=== PATIENT | female | born 1930 | race Two or more races ===

== ENCOUNTER 2018-01-17 00:40 | Inpatient (IN) | payer MEDICARE, BC ==
[2018-01-17] VITALS (36 sets, daily range): BP systolic 118–169; BP diastolic 34–103
[~2018-01-17] VITALS: Ht 152.4 cm; Wt 60.3 kg
--- NOTE | 2018-01-17 01:00 | NUR ---
PT BIBRA COMPLAINING OF SOB X1WEEK. PER EMS, PT O2 SAT MID 70 ON ROOM AIR. PT ARRIVED ON BIPAP, RECIEVED NITRO BY RA. PT DIAPHORETIC ON ARRIVAL WITH BILATERAL WHEEZING. PT O2 SAT 91% ROOM AIR ON ARRIVAL, PLACED ON O2 NC, IMPROVED TO 97%. PT DENIES CHEST PAIN, NVD AT THIS TIME. PT HAS 18G ON RIGHT AC. PT IN GOWN AND PLACED ON MONITOR. WAITING MD EVALUATION
[2018-01-17] MEDS ORDERED: IPRATROPIUM NEB FS 0.5 MG/2.5 ML AMPUL.NEB NEB ONE (01:30)
[2018-01-17] MEDS ORDERED: AZITHROMYCIN 500 MG in IV D5W 250 ML IV ONE (01:30)
[2018-01-17] MEDS ORDERED: CEFTRIAXONE 1GM BAG (ER ONLY) 50 ML IV ONE (01:30)
[2018-01-17] MEDS ORDERED: IV NS 0.9% 500 ML BAG IV ONE (01:30)
[2018-01-17] MEDS ORDERED: ALBUTEROL FS 2.5 MG/3 ML VIAL.NEB NEB ONE (01:30)
[2018-01-17] MEDS ORDERED: predniSONE 20 MG TABLET PO ONE (01:30)
[2018-01-17] MEDS ORDERED: CEFTRIAXONE 1 G VIAL ONE (01:40)
[2018-01-17 01:41] LABS: BASOPHILS # (AUTO) 0.1 /CMM (0.0-0.2); BASOPHILS % (AUTO) 0.8 % (0.0-2.0); EOSINOPHILS % (AUTO) 11.8 % (0.0-6.0); HEMATOCRIT 36 % (33-45); LYMPHOCYTES # (AUTO) 2.6 /CMM (0.8-4.8); LYMPHOCYTES % (AUTO) 25.2 % (20.0-44.0); MEAN CORPUSCULAR HEMOGLOBIN 31 PG (26.0-33.0); MEAN CORPUSCULAR HGB CONC 33 g/dl (31.0-36.0); MEAN CORPUSCULAR VOLUME 94 fL (82-100); MONOCYTES # (AUTO) 0.7 /CMM (0.1-1.30); MONOCYTES % (AUTO) 7.1 % (2.0-12.0); NEUTROPHILS # (AUTO) 5.8 /CMM (1.8-8.9); NEUTROPHILS % (AUTO) 55.1 % (43.0-81.0); PLATELET COUNT (AUTO) 312 /CMM (150-450); RDW COEFFICIENT OF VARIATION 14.4 (11.5-15.0); RED BLOOD CELL COUNT(AUTO) 3.84 MIL/uL (4.0-5.2); WHITE BLOOD COUNT (AUTO) 10.4 K/uL (4.3-11.0)
[2018-01-17] MEDS ORDERED: predniSONE 20 MG TABLET ONE (01:41)
--- NOTE | 2018-01-17 01:44 | NUR ---
RADIOLOGY AT BEDSIDE FOR CXR
[2018-01-17 01:47] LABS: CALCIUM, SERUM 8.4 mg/dL (8.5-10.1); CARBON DIOXIDE 25 mmol/L (21-32); CHLORIDE 104 mmol/L (98-107); CREATININE 1.4 mg/dL (0.6-1.3); GLUCOSE 193 mg/dL (74-106); POTASSIUM 3.8 mmol/L (3.5-5.1); SODIUM SERUM 142 mmol/L (136-145); UREA NITROGEN, BLOOD 32 mg/dL (7-18)
[2018-01-17 01:51] LABS: INR 0.92 (0.87-1.13)
[2018-01-17 01:58] LABS: TROPONIN I < 0.017 ng/mL (0.00-0.056)
--- NOTE | 2018-01-17 01:58 | NUR ---
CALLED RT FOR BREATHING TX.
[2018-01-17 01:59] LABS: ALANINE AMINOTRANSFERASE 53 U/L (12-78); ALBUMIN 3.3 g/dL (3.4-5.0); ALKALINE PHOSPHATASE 118 U/L (46-116); ASPARTATE AMINOTRANSFERASE 55 U/L (15-37); B-TYPE NATRIURETIC PEPTIDE 885 PG/ML (0-125); BILIRUBIN,DIRECT 0.1 mg/dL (0.0-0.2); BILIRUBIN,TOTAL 0.3 mg/dL (0.2-1.0); TOTAL PROTEIN, SERUM 7.1 g/dL (6.4-8.2)
[2018-01-17] MEDS ORDERED: ALBUTEROL FS 2.5 MG/3 ML VIAL.NEB ONE (02:05)
[2018-01-17] MEDS ORDERED: IPRATROPIUM NEB FS 0.5 MG/2.5 ML AMPUL.NEB ONE (02:05)
[2018-01-17] MEDS ORDERED: AZITHROMYCIN 500 MG VIAL ONE (02:08)
--- NOTE | 2018-01-17 02:10 | NUR ---
RT AT BEDSIDE FOR BREATHING TX
[2018-01-17] MEDS ORDERED: IV NS 0.9% 1,000 ML BAG IV ONE (02:30)
--- NOTE | 2018-01-17 02:33 | NUR ---
CALLED ROBERTA, SPOKE TO JULIUS, CXR TO BE READ
--- NOTE | 2018-01-17 02:50 | NUR ---
VETERINARY MANAGER AT BEDSIDE FOR BLOOD DRAW
--- NOTE | 2018-01-17 03:00 | NUR ---
SHREYA SANABRIA NP PAGED.
--- NOTE | 2018-01-17 03:07 | NUR ---
PT ASSIGNED TO [facility] BED 310-2
--- NOTE | 2018-01-17 03:25 | NUR ---
GAVE REPORT TO MICHAEL ANDERSON FOR FELIPA
[2018-01-17] MEDS ORDERED: MORPHINE SULFATE INJ 2 MG/ML DISP.SYRIN IV PRN (03:30)
[2018-01-17] MEDS ORDERED: ONDANSETRON HCL/PF 4 MG/2 ML VIAL IVP PRN (03:30)
[2018-01-17] MEDS ORDERED: IPRATROPIUM BROMIDE 14 GM INHALER (or 12.9 GM) IH PRN (03:30)
[2018-01-17] MEDS ORDERED: IV NS 0.9% 1,000 ML IV SCH (03:30)
[2018-01-17] MEDS ORDERED: NITROGLYCERIN 0.4 MG/TAB BOTTLE SL PRN (03:30)
[2018-01-17] MEDS ORDERED: ACETAMINOPHEN 325 MG TABLET PO PRN (03:30)
[2018-01-17] MEDS ORDERED: ALBUTEROL FS 2.5 MG/0.5 ML VIAL.NEB NEB PRN (03:30)
--- NOTE | 2018-01-17 03:35 | NUR ---
SLACK COOPERBROADCAST SYSTEMS ENGINEER NOTES Patient came to unit via kylah, alert, oriented x 4. Audible wheezing upon expiration noted. Patient is short of breath, labored breathing even at rest. On O2 at 2L via NC saturating at 98%. Peripheral IV on RAC g#18 still running from ER. Oriented to call bernal, patient verbalizes understanding. Skin assessment done, no skin issues notes. Patient still short of breath even at rest, RT called for breathing treatment. Safety measures in place. Bed in low locked position. Will monitor accordingly
--- NOTE | 2018-01-17 03:40 | NUR ---
RN NOTES Tele monitor put in place, sinus tachy 104 with BBB
--- NOTE | 2018-01-17 03:41 | NUR ---
TRANSFERRED PT TO 310-2 PER ACLS PROTOCOL
--- NOTE | 2018-01-17 04:40 | NUR ---
RN NOTES RT at bedside giving breathing treatment. As per RT, patient is still wheezing and crackles noted upon auscultation, breathing treatment is not helping at all. NOMI Garcia made aware.
--- NOTE | 2018-01-17 04:45 | NUR ---
RN NOTES Received orders from NOMI Garcia to D/C fluids currently running. Orders carried out
--- NOTE | 2018-01-17 04:50 | NUR ---
RN NOTES Patient is still short of breath even after breathing treatment. NOMI Garcia made aware. As per NOMI Garcia, check ABG. RT made aware.
--- NOTE | 2018-01-17 05:10 | NUR ---
RN NOTES ABG results relayed to NOMI Garcia. As per Radha, transfer patient to ICU. Orders carried out
[2018-01-17] MEDS ORDERED: MORPHINE SULFATE INJ 4 MG/ML DISP.SYRIN IV PRN (05:30)
--- NOTE | 2018-01-17 05:30 | NUR ---
RN NOTES Patient transferred to ICU. Bedside report given to SUBSTATION ENGINEER Fannie
[2018-01-17] MEDS ORDERED: FUROSEMIDE 20 MG/2 ML VIAL IV SCH (06:00)
--- NOTE | 2018-01-17 06:00 | NUR ---
GLOVE BRUSHER RCD PT FROM 3W @ 0546 FOR RESP DIST; PT A/O x4; NSR ON MONITOR. PLACED ON BIPAP BY RT WITH SETTINGS 14 15/5 50%. 18 G RAC SL. CONFIRMED WITH WILSTEIN RN CHILD TO DC IV FLUIDS. CONTINUE TO MONITOR. ADMISSION TO BE DONE BY TRANSFERRING NURSE.
[2018-01-17 06:16] LABS: ABG OXYGEN SATURATION 93.8 % (92.0-98.5); ABG PCO2 50.1 mmHg (35.0-45.0); ABG PH 7.279 (7.350-7.450); AaDO2 143.6 mmHg; COHb 0.3 % (0.5-1.5); MetHb 0.6 % (0.0-1.5); SITE, ABG Right Radial; VENT MODE, BG 5L NC
--- NOTE | 2018-01-17 06:21 | NUR ---
PT REC'D IN RESP DISTRESS, PLACED ON CPAP WITH NOTED SETTINGS 15/5 BUR 14 50% FIO2. PATIENT TOLERATING SETTINGS WELL. NOW RESTING COMFORTABLY. BREATH SOUNDS DIMINISHED EQUAL BILATERALLY. CPAP PLUGGED INTO RED OUTLET. AMBU BAG AT BEDSIDE. WILL CONTINUE TO MONITOR. Addendum: 01/17/18 at 0625 by YEIMY REICH RT Amended: Links added.
--- NOTE | 2018-01-17 07:15 | NUR ---
NETWORK OPERATIONS LEAD DE LUNA CATH INSERTED PT TOLERATED WELL.
--- NOTE | 2018-01-17 07:15 | NUR ---
RN INITIAL NOTES PATIENT RESTING IN BED, ON BIPAP, RR 14, 15/5, 50% - TOLERATING WELL SR ON MONITOR WITH HR 80S IV SITES ON RIGHT AC 18 PATENT AND INTACT. 22 ON RIGHT HAND PATENT AND INTACT. FC DRAINING CLEAR YELLOW URINE PATIENT RESPONSIVE TO NAME AND TOUCH. AOX X4 DENYING PAIN. FALL PRECAUTIONS IMPLEMENTED
[2018-01-17] MEDS ORDERED: HYDR200T81 PO (07:29)
[2018-01-17] MEDS ORDERED: PRED1TAB PO (07:29)
[2018-01-17] MEDS ORDERED: METO-356 PO (07:29)
[2018-01-17] MEDS ORDERED: GABA-532 PO ×2 (07:29)
[2018-01-17] MEDS ORDERED: OMEP20CA10 PO (07:29)
[2018-01-17] MEDS ORDERED: AMLO2.5T3 PO (07:29)
[2018-01-17] MEDS ORDERED: DULO20CA PO (07:29)
[2018-01-17] MEDS ORDERED: LOSA100T15 PO (07:29)
[2018-01-17] MEDS ORDERED: IPRATROPIUM BROMIDE 14 GM INHALER (or 12.9 GM) IH SCH (07:30)
[2018-01-17] MEDS ORDERED: IPRATROPIUM NEB FS 0.5 MG/2.5 ML AMPUL.NEB NEB PRN (07:30)
[2018-01-17] MEDS: ALBUTEROL FS 2.5 MG/0.5 ML VIAL.NEB NEB SCH ×5 (08:14→22:58)
[2018-01-17 08:50] LABS: THYROID STIMULATING HORMONE 3.199 uIU/mL (0.358-3.74)
[2018-01-17 08:59] LABS: ABG BASE EXCESS 2.3 mmol/L; ABG OXYGEN SATURATION 96.8 % (92.0-98.5); ABG PH 7.391 (7.350-7.450); ABG PO2 101.6 mmHg (75.0-100.0); AaDO2 129.6 mmHg; COHb 0.3 % (0.5-1.5); MetHb 0.6 % (0.0-1.5); O2Hb 95.9 % (94.0-97.0); SITE, ABG Right Radial; VENT MODE, BG BIPAP 15/5 R14 40%
[2018-01-17] MEDS ORDERED: predniSONE 20 MG TABLET PO SCH (09:00)
[2018-01-17] MEDS: FUROSEMIDE 40 MG/4 ML VIAL IV SCH ×3 (09:48→17:13)
[2018-01-17] MEDS: PANTOPRAZOLE 40 MG VIAL IV SCH (09:50)
--- NOTE | 2018-01-17 09:54 | NUR ---
LAB NOTIFIED OF STAT ORDERS
--- NOTE | 2018-01-17 10:05 | NUR ---
POST ABG RESULTS PATIENT REMOVED FROM BIPAP AND PLACED ON 3L N/C LANDY WELL. PATIENT AWAKE, ALERT, ZERO SOB.
[2018-01-17 10:50] LABS: BASOPHILS % (AUTO) 0.3 % (0.0-2.0); EOSINOPHILS % (AUTO) 0.2 % (0.0-6.0); HEMATOCRIT 36 % (33-45); HEMOGLOBIN 11.9 g/dL (11.5-14.8); LYMPHOCYTES # (AUTO) 0.4 /CMM (0.8-4.8); LYMPHOCYTES % (AUTO) 4.2 % (20.0-44.0); MEAN CORPUSCULAR HEMOGLOBIN 31 PG (26.0-33.0); MEAN CORPUSCULAR HGB CONC 33 g/dl (31.0-36.0); MEAN CORPUSCULAR VOLUME 93 fL (82-100); MONOCYTES # (AUTO) 0.1 /CMM (0.1-1.30); MONOCYTES % (AUTO) 1.4 % (2.0-12.0); NEUTROPHILS # (AUTO) 8.2 /CMM (1.8-8.9); NEUTROPHILS % (AUTO) 93.9 % (43.0-81.0); PLATELET COUNT (AUTO) 269 /CMM (150-450); RDW COEFFICIENT OF VARIATION 13.7 (11.5-15.0); RED BLOOD CELL COUNT(AUTO) 3.83 MIL/uL (4.0-5.2); WHITE BLOOD COUNT (AUTO) 8.7 K/uL (4.3-11.0)
[2018-01-17 10:52] LABS: CALCIUM, SERUM 8.4 mg/dL (8.5-10.1); CARBON DIOXIDE 31 mmol/L (21-32); CHLORIDE 100 mmol/L (98-107); CREATININE 1.1 mg/dL (0.6-1.3); GLUCOSE 154 mg/dL (74-106); POTASSIUM 4.4 mmol/L (3.5-5.1); SODIUM SERUM 135 mmol/L (136-145); UREA NITROGEN, BLOOD 28 mg/dL (7-18)
[2018-01-17 10:58] LABS: ALANINE AMINOTRANSFERASE 86 U/L (12-78); ALBUMIN 3.4 g/dL (3.4-5.0); ALKALINE PHOSPHATASE 124 U/L (46-116); ASPARTATE AMINOTRANSFERASE 76 U/L (15-37); BILIRUBIN,TOTAL 0.3 mg/dL (0.2-1.0); MAGNESIUM 1.8 mg/dL (1.8-2.4); PHOSPHORUS 4.6 mg/dL (2.5-4.9); TOTAL PROTEIN, SERUM 7.3 g/dL (6.4-8.2)
[2018-01-17] MEDS: ENOXAPARIN SODIUM 30 MG/0.3 ML DISP.SYRIN SQ SCH (12:26)
--- NOTE | 2018-01-17 12:45 | NUR ---
DR VERA NOTIFIED OF LACTIC ACID RESULT OF 3.2, NO NEW ORDERS
--- NOTE | 2018-01-17 12:46 | NUR ---
DR VERA INFORMED THAT FLUID ARE DISCONTINUED AND CURRENT PLAN INCLUDES LASIX 40 MG IV Q 4 HOURS FOR A TOTAL OF [address] WYNN NO NEW ORDERS
--- NOTE | 2018-01-17 14:00 | NUR ---
PATIENT REFUSING LUNCH STATING SHE IS NOT HUNGRY. SNACKS OFFERED, STILL REFUSING
[2018-01-17 15:46] LABS: APPEARANCE,URINE CLEAR (CLEAR); BILIRUBIN,URINE NEGATIVE (NEGATIVE); BLOOD, URINE TRACE Ery/uL (NEGATIVE); COLOR,URINE YELLOW (YELLOW); KETONES,URINE NEGATIVE (NEGATIVE); LEUKOCYTE ESTERASE ,URINE NEGATIVE (NEGATIVE); NITRITE, URINE NEGATIVE (NEGATIVE); PH,URINE 6.5 (5.0-8.0); PROTEIN,URINE NEGATIVE (NEGATIVE); UGLUCOSE NEGATIVE (NEGATIVE); UROBILINOGEN,URINE 0.2 EU/dL (0.2)
[2018-01-17 15:50] LABS: BACTERIA,URINE None seen /HPF (None Seen); RBC,URINE 0-2 /HPF (0-2); SQUAMOUS EPITHELIAL CELL,UR Few /HPF (None Seen); WBC,URINE 0-2 /HPF (0-3)
--- NOTE | 2018-01-17 15:50 | NUR ---
RT PATIENT SLEEPING COMFORTABLY WITH NO SOB NOTED. TX HELD TO ALLOW PATIENT TO REST
--- NOTE | 2018-01-17 18:28 | NUR ---
DR VERA NOTIFIED OF TROPONIN LEVEL NO NEW ORDER. PATIENT DENYING CHEST PAIN. NONLABORED BREATHING NOTED ON 3 L. HR SR HR IN 90S SINUS TACHYCARDIA 102-106 NOTED WHEN PATIENT AMBULATING AND WHEN EATING
--- NOTE | 2018-01-17 19:28 | NUR ---
RN CLOSING NOTES: PATIENT RESTING IN BED. NONLABORED BREATHING NOTED ON 3L NASAL CANNULA. AOX4, FOLLOWING COMMANDS. IV SITES ON RIGHT AC 18 AND 22 RIGHT HAND PATENT AND INTACT. BED IN LOWST LOCKED POSITION.CALL LIGHT WITHIN REACH. ENDORSED TO MONICA RADER TELE MONITOR INDICATING HR WITH 90S , SR. DENYING CHEST PAIN FALL AND ASPIRATION PRECAUTIONS IMPLEMENTED THROUGHOUT SHIFT REP CULTURE TO BE COLLECTED. NO COUGHING NOTED DURING SHIFT, PATIENT EDUCATED ON OBTAINING THE SPECIMEN
--- NOTE | 2018-01-17 19:32 | NUR ---
RN CLOSING NOTES: PATIENT RESTING IN BED. NONLABORED BREATHING NOTED ON 3L NASAL CANNULA. AOX4, FOLLOWING COMMANDS. IV SITES ON RIGHT AC 18 AND 22 RIGHT HAND PATENT AND INTACT. BED IN LOWST LOCKED POSITION.CALL LIGHT WITHIN REACH. ENDORSED TO MONICA RADER TELE MONITOR INDICATING HR WITH 90S , SR. DENYING CHEST PAIN. DE LUNA CATHETER DRAINING YELLOW CLEAR URINE FALL AND ASPIRATION PRECAUTIONS IMPLEMENTED THROUGHOUT SHIFT REP CULTURE TO BE COLLECTED. NO COUGHING NOTED DURING SHIFT, PATIENT EDUCATED ON OBTAINING THE SPECIMEN
--- NOTE | 2018-01-17 21:10 | NUR ---
RECREATIONAL PROGRAMS DIRECTOR - REC'D PT. STABLE,NICE, BUT ALITTLE RESTLESS. PT. HAS HX OF FIBROMYALGIA & USUALLY TAKES "ULTRAM" FOR THE PAIN. MED RECON WAS NOT DONE YET. PT'S SON-ELIDA PHONED FOR STATUS UPDATE & WAS READY TO GIVE ME THE PT'S MED LIST OVER PHONE. I SPECIFICALLY ASKED FOR THE ULTRAM ORDER FROM THE SON. I ASKED THE SON POLITELY TO MAKE A MEDICATION LIST WITH PT'S NAME, ALL HER MEDICATIONS W/DOSAGE & ROUTE & HOW MANY TIMES A DAY DRUG IS TO BE ADM. I TOLD THE SON THAT WHERE EVER YOU GO NOW, UR DR OR PT. WILL NEED IT & IT'S MUCH EASIER FOR THE HOSPITAL ADMISSIONS. AFEBRILE. PT.IS VERY INDEPENDENT. PT. DANGLED ON SIDE OF BED W/ASSIST. BED ALARM IS ON. TRACE EDEMA TO BUE'S & BLE'S. DE LUNA CATH TO GRAVITY. HX OF LEFT SHOULDER FX. HEART MONITOR SHOWS SR/ST. SBP'S ARE LABILE. PT.IS ON O2/3L/NC & USUALLY GOES ON BIPAP AT NOC. LUNG SAMS HAVE RHONCHI TO ALL LOBES. CONT.POC.
[2018-01-17] MEDS: TRAMADOL HCL 50 MG TABLET PO SCH (21:15)
[2018-01-17] MEDS: AZITHROMYCIN 500 MG in IV D5W 250 ML IV SCH (21:24)
[2018-01-18] VITALS (22 sets, daily range): BP systolic 98–143; BP diastolic 33–63
[2018-01-18] MEDS: CEFTRIAXONE 1 G in IV D5W 50 ML IV SCH ×2 (00:15→23:03)
[2018-01-18] MEDS: ALBUTEROL FS 2.5 MG/0.5 ML VIAL.NEB NEB SCH ×6 (02:51→23:30)
[2018-01-18 04:52] LABS: BASOPHILS % (AUTO) 0.2 % (0.0-2.0); EOSINOPHILS % (AUTO) 0.2 % (0.0-6.0); HEMATOCRIT 32 % (33-45); HEMOGLOBIN 11.3 g/dL (11.5-14.8); LYMPHOCYTES % (AUTO) 5.7 % (20.0-44.0); MEAN CORPUSCULAR HEMOGLOBIN 32 PG (26.0-33.0); MEAN CORPUSCULAR HGB CONC 35 g/dl (31.0-36.0); MEAN CORPUSCULAR VOLUME 93 fL (82-100); MONOCYTES # (AUTO) 1.8 /CMM (0.1-1.30); MONOCYTES % (AUTO) 10.5 % (2.0-12.0); NEUTROPHILS % (AUTO) 83.4 % (43.0-81.0); PLATELET COUNT (AUTO) 281 /CMM (150-450); RDW COEFFICIENT OF VARIATION 14.4 (11.5-15.0); RED BLOOD CELL COUNT(AUTO) 3.51 MIL/uL (4.0-5.2); WHITE BLOOD COUNT (AUTO) 16.8 K/uL (4.3-11.0)
[2018-01-18 06:01] LABS: ALANINE AMINOTRANSFERASE 100 U/L (12-78); ALBUMIN 3.3 g/dL (3.4-5.0); ALKALINE PHOSPHATASE 107 U/L (46-116); ASPARTATE AMINOTRANSFERASE 85 U/L (15-37); BILIRUBIN,TOTAL 0.4 mg/dL (0.2-1.0); CALCIUM, SERUM 8.5 mg/dL (8.5-10.1); CARBON DIOXIDE 32 mmol/L (21-32); CHLORIDE 97 mmol/L (98-107); CREATININE 1.3 mg/dL (0.6-1.3); GLUCOSE 121 mg/dL (74-106); MAGNESIUM 1.9 mg/dL (1.8-2.4); PHOSPHORUS 4.4 mg/dL (2.5-4.9); POTASSIUM 3.6 mmol/L (3.5-5.1); SODIUM SERUM 139 mmol/L (136-145); TOTAL PROTEIN, SERUM 6.9 g/dL (6.4-8.2); UREA NITROGEN, BLOOD 37 mg/dL (7-18)
--- NOTE | 2018-01-18 07:05 | NUR ---
RN INITIAL NOTES RECEIVED PT AWAKE, A/0X4. HOB ELEVATED. ON 02 AT 3LPM VIA NC. NO SOB NOTED. TOLERTABLE ON LEFT SHOULDER NOTED. IV LINES IN PLACE. FC INTACT. NO HEMATURIA NOTED. PT COMFORTABLE. BLE ELEVATED. CALL LIGHT WITHIN REACH. WILL MONITOR.
[2018-01-18] MEDS: DULOXETINE HCL 20 MG CAPSULE.DR PO SCH (08:16)
[2018-01-18] MEDS: PANTOPRAZOLE 40 MG VIAL IV SCH (08:16)
[2018-01-18] MEDS: GABAPENTIN 100 MG CAPSULE PO SCH (08:16)
[2018-01-18] MEDS: FUROSEMIDE 40 MG/4 ML VIAL IV SCH ×3 (08:16→16:00)
[2018-01-18] MEDS: POTASSIUM CHLORIDE 20 MEQ TAB.PRT.SR PO SCH ×2 (08:16→09:00)
[2018-01-18] MEDS: METOPROLOL SUCCINATE 25 MG TAB.SR.24H PO SCH (08:17)
[2018-01-18] MEDS: HYDROXYCHLOROQUINE 200 MG TABLET PO SCH (08:17)
[2018-01-18] MEDS: LOSARTAN POTASSIUM 50 MG TABLET PO SCH (08:17)
[2018-01-18] MEDS: TRAMADOL HCL 50 MG TABLET PO SCH (08:17)
[2018-01-18] MEDS: ENOXAPARIN SODIUM 30 MG/0.3 ML DISP.SYRIN SQ SCH (08:18)
[2018-01-18] MEDS: AMLODIPINE BESYLATE 2.5 MG TABLET PO SCH (08:19)
[2018-01-18 08:49] LABS: ABG BASE EXCESS 1.9 mmol/L; ABG OXYGEN SATURATION 95.1 % (92.0-98.5); ABG PCO2 36.2 mmHg (35.0-45.0); ABG PH 7.465 (7.350-7.450); AaDO2 77.9 mmHg; COHb 0.3 % (0.5-1.5); MetHb 0.5 % (0.0-1.5); O2Hb 94.3 % (94.0-97.0); VENT MODE, BG NASAL CANNULA
[2018-01-18] MEDS ORDERED: predniSONE 1 MG TABLET PO SCH (09:00)
--- NOTE | 2018-01-18 09:00 | NUR ---
RN NOTES 08 SEEN AND EXAMINED BY DR WYNN. AWARE OF CURRENT LAB VALUES AND CXR RESULT. PER MD, OK TO DOWNGRADE TO MEDSURG. PT AWARE. 899 SEEN AND EXAMINED BY DR PELEG. TAYLOR AWARE OF CURRENT LAB VALUES AND CXR RESULT. PT ON AT 2LPM VIA NC. 02 SAT >94%. NO SOB NOTED. PT CLEAR FOR DOWNGRADE.
--- NOTE | 2018-01-18 11:00 | NUR ---
RN NOTES PT TRANSFERRED TO ROOM 202. PT A/OX4. NO SOB NOTED. 02 AT 2LPM VIA NC. IN STABLE CONDITION. PT CLEAN AND DRY. PT COMFORTABLE. REPORT GIVEN TO MONICA VAZQUEZ AT BEDSIDE. TOOK OVER PT'S CARE.
--- NOTE | 2018-01-18 11:03 | NUR ---
RECEIVED TRANSFER FROM ICU AND RECEIVED REPORT FROM MONICA REID.PT ALERT AND ORIENTED X4.VERBALLY RESPONSIVE.RESPIRATIONS NON LABORED ON O2 AT 2L/MIN VIA NC.WITH DE LUNA CATH DRAINING YELLOW URINE MOD IN AMOUNT.SEEN BY SYL SOLO NP AND CLARIFIED MED RECON AND PREDNISONE ORDER OF 4 OR 40 MG PO QD.PT IS FOR P.T. EVAL.DENIES ANY PAIN OR DISTRESS.CALL LIGHT PLACED WITHIN REACH.
--- NOTE | 2018-01-18 11:54 | NUR ---
AMBULATED WITH P.T. USING FWW ALONG THE HALLWAY WITH O2 AT 2L/MIN VIA N/C.PT TOLERATED WELL.DENIES ANY DISTRESS.
[2018-01-18] MEDS ORDERED: TRAM50TA2 PO (12:44)
[2018-01-18] MEDS ORDERED: DICL50TA9 PO (12:44)
--- NOTE | 2018-01-18 13:17 | NUR ---
PT'S SON BROUGHT IN PT'S HOME MED LIST AND CLARIFIED WITH NOMI STREETER AND CHANGED PREDNISONE TO 4 MG PO QD AND CHANGED ULTRAM TO 50 MG PO Q 6HRS PRN AND CARRIED OUT.
[2018-01-18] MEDS: GABAPENTIN 300 MG CAPSULE PO SCH (17:38)
[2018-01-18] MEDS ORDERED: GABAPENTIN 100 MG CAPSULE PO SCH (18:00)
[2018-01-18] MEDS ORDERED: FUROSEMIDE 40 MG/4 ML VIAL IV SCH (18:00)
--- NOTE | 2018-01-18 19:00 | NUR ---
PT RESTING IN BED DENYING ANY PAIN OR DISTRESS.TALKING TO HER DAUGHTER IN THE PHONE.WITH DE LUNA CATH DRAINING YELLOW URINE MODERATE IN AMOUNT.CALL LIGHT PLACED WITHIN REACH.
--- NOTE | 2018-01-18 19:34 | NUR ---
MS MONICA OPENING NOTES: RECEIVED PT ON 2LPM VIA NC AND IS ON THE PHONE WITH HER DAUGHTER. PT HAS DE LUNA CATH AND IS ATTACHED TO DRAINAGE BAG WITH YELLOW URINE DRAINING. BED ALARM ACTIVATED. PT IS A/OX4. PT HAS IV ON L HAND #22G AND LAC #20G AND BOTH ARE HEP LOCK. CALL LIGHT WITHIN PT'S REACH. BED KEPT IN LOW, LOCKED POSITION, AND SIDE RAILS X 2UP. WILL CONTINUE TO MONITOR PT. Addendum: 01/18/18 at 2014 by CASSIE MAYFIELD RN 4LPM* Addendum: 01/18/18 at 2320 by CASSIE MAYFIELD RN R HAND #22G R AC #20G
[2018-01-18] MEDS: AZITHROMYCIN 500 MG in IV D5W 250 ML IV SCH (21:00)
--- NOTE | 2018-01-19 06:53 | NUR ---
MS RN CLOSING NOTES: ALL NEEDS WERE ATTENDED AND ANTICIPATED FOR. PT KEPT CLEAN, DRY, AND COMFORTABLE. PT REMAINS ON 2LPM VIA NC. PT HAS DE LUNA CATH AND IS ATTACHED TO DRAINAGE BAG WITH YELLOW URINE DRAINING. OUTPUT WAS 700ML. PT HAS IV ON R HAND R AC AND ARE BOTH PATENT AND INTACT. CURRENTLY H/L. BED ALARM ACTIVATED. PT IN SEMI-SANCHEZ'S POSITION. CALL LIGHT WITHIN PT'S REACH. BED KEPT IN LOW, LOCKED POSITION, AND SIDE RAILS X 2UP. WILL ENDORSE TO AM NURSE FOR FELIPA.
[2018-01-19 07:30] LABS: BASOPHILS % (AUTO) 0.6 % (0.0-2.0); EOSINOPHILS % (AUTO) 8.2 % (0.0-6.0); HEMATOCRIT 34 % (33-45); HEMOGLOBIN 11.5 g/dL (11.5-14.8); LYMPHOCYTES # (AUTO) 1.2 /CMM (0.8-4.8); LYMPHOCYTES % (AUTO) 16.8 % (20.0-44.0); MEAN CORPUSCULAR HEMOGLOBIN 32 PG (26.0-33.0); MEAN CORPUSCULAR HGB CONC 34 g/dl (31.0-36.0); MEAN CORPUSCULAR VOLUME 93 fL (82-100); MONOCYTES # (AUTO) 0.8 /CMM (0.1-1.30); MONOCYTES % (AUTO) 11.5 % (2.0-12.0); NEUTROPHILS # (AUTO) 4.6 /CMM (1.8-8.9); NEUTROPHILS % (AUTO) 62.9 % (43.0-81.0); PLATELET COUNT (AUTO) 266 /CMM (150-450); RDW COEFFICIENT OF VARIATION 14.4 (11.5-15.0); RED BLOOD CELL COUNT(AUTO) 3.62 MIL/uL (4.0-5.2); WHITE BLOOD COUNT (AUTO) 7.2 K/uL (4.3-11.0)
[2018-01-19 07:37] LABS: ALANINE AMINOTRANSFERASE 140 U/L (12-78); ALBUMIN 3.1 g/dL (3.4-5.0); ALKALINE PHOSPHATASE 105 U/L (46-116); ASPARTATE AMINOTRANSFERASE 110 U/L (15-37); BILIRUBIN,TOTAL 0.3 mg/dL (0.2-1.0); CALCIUM, SERUM 8.4 mg/dL (8.5-10.1); CARBON DIOXIDE 35 mmol/L (21-32); CHLORIDE 100 mmol/L (98-107); CREATININE 1.1 mg/dL (0.6-1.3); GLUCOSE 92 mg/dL (74-106); MAGNESIUM 2.3 mg/dL (1.8-2.4); PHOSPHORUS 4.6 mg/dL (2.5-4.9); POTASSIUM 3.6 mmol/L (3.5-5.1); SODIUM SERUM 140 mmol/L (136-145); TOTAL PROTEIN, SERUM 6.5 g/dL (6.4-8.2); UREA NITROGEN, BLOOD 35 mg/dL (7-18)
[2018-01-19 08:00] VITALS: BP 113/65
--- NOTE | 2018-01-19 08:00 | NUR ---
MS RN AM NOTES: RECEIVED PT AWAKE LYING IN BED.ON 2LPM VIA NC PT HAS DE LUNA CATH AND IS ATTACHED TO DRAINAGE BAG DRAINING YELLOW URINE MODERATE IN . BED ALARM ACTIVATED. PT IS A/OX4. PT HAS IV ON RT HAND #22G HEP LOCK AND RT AC #20G HEP LOCK. CALL LIGHT WITHIN PT'S REACH. BED KEPT IN LOW, LOCKED POSITION, AND SIDE RAILS X 2UP. WILL CONTINUE TO MONITOR PT.
[2018-01-19] MEDS: ALBUTEROL FS 2.5 MG/0.5 ML VIAL.NEB NEB SCH ×5 (08:12→23:08)
[2018-01-19] MEDS: TRAMADOL HCL 50 MG TABLET PO PRN ×2 (08:25→20:20)
[2018-01-19] MEDS: AMLODIPINE BESYLATE 2.5 MG TABLET PO SCH (08:26)
[2018-01-19] MEDS: GABAPENTIN 100 MG CAPSULE PO SCH (08:26)
[2018-01-19] MEDS: PANTOPRAZOLE 40 MG VIAL IV SCH (08:26)
[2018-01-19] MEDS: HYDROXYCHLOROQUINE 200 MG TABLET PO SCH (08:26)
[2018-01-19] MEDS: METOPROLOL SUCCINATE 25 MG TAB.SR.24H PO SCH (08:26)
[2018-01-19] MEDS: LOSARTAN POTASSIUM 50 MG TABLET PO SCH (08:27)
[2018-01-19] MEDS: DULOXETINE HCL 20 MG CAPSULE.DR PO SCH (08:27)
[2018-01-19] MEDS: ENOXAPARIN SODIUM 30 MG/0.3 ML DISP.SYRIN SQ SCH (08:28)
[2018-01-19] MEDS: predniSONE 1 MG TABLET PO SCH (08:51)
[2018-01-19] MEDS ORDERED: LEVO500T75 PO (09:17)
[2018-01-19] MEDS ORDERED: AZIT250T13 PO (09:17)
--- NOTE | 2018-01-19 09:30 | NUR ---
PT IS FOR DISCHARGE HOME AND REMOVED PT'S DE LUNA CATHETER AND WILL MONITOR PT'S VOIDING.MONITORED PT'S OXYGEN SATURATION ON ROOM AIR AND PT DESATURATED TO 76% FOR ABOUT 5 MINS AND WENT BACK TO 84% PROGRESSING TO 100% WHILE SITTING ON THE CHAIR.NO SOB OR DISTRESS AT THIS TIME BUT WILL CONTINUE TO MONITOR.NOTIFIED TILE GRINDER,JOAN WHO PROVIDED O2 TANK AT BEDSIDE BUT WILL ARRANGE FOR O2 CONCENTRATOR TO BE DELIVERED IN PT'S HOME.
[2018-01-19] MEDS ORDERED: FEE PK DOSING 1 MIN EA MC ONE (11:11)
[2018-01-19] MEDS ORDERED: VANCOMYCIN 1 GM in IV D5W 250 ML IV ONE (12:00)
[2018-01-19 16:00] VITALS: BP 117/53
[2018-01-19 17:36] LABS: BILIRUBIN,DIRECT 0.1 mg/dL (0.0-0.2)
[2018-01-19] MEDS: GABAPENTIN 300 MG CAPSULE PO SCH (17:37)
--- NOTE | 2018-01-19 19:30 | NUR ---
MS RN NOTES RECEIVED SITTING ON BEDSIDE CHAIR,O2 IN USED AT 2L/NC.DENIES DISCOMFORTS AT THE MOMENT.SALINE LOCK X2 ON RIGHT ARM INTACT AND PATENT.CALL LIGHT IN REACH,NEEDS ANTICIPATED.
[2018-01-19 20:00] VITALS: BP 125/69
--- NOTE | 2018-01-19 20:20 | NUR ---
MS RN NOTES C/O GENERALIZED PAIN, 8/10 ON PAIN SCALE,ULTRAM 50MG PO GIVEN PER PATIENT REQUEST.
[2018-01-19] MEDS: AZITHROMYCIN 500 MG in IV D5W 250 ML IV SCH (21:32)
[2018-01-19] MEDS: CEFTRIAXONE 1 G in IV D5W 50 ML IV SCH (23:51)
[2018-01-20] MEDS: ALBUTEROL FS 2.5 MG/0.5 ML VIAL.NEB NEB SCH ×4 (03:01→16:11)
--- NOTE | 2018-01-20 06:52 | NUR ---
MS RN NOTES RESTING COMFORTABLY ON BED,IV ABX TOLERATED WELL.PAIN MANAGEMENT EFFECTIVE.POSSIBLE D/C TO HOME TODAY AWAITING O2 CONCENTRATOR FOR HOME USE.IN NO ACUTE DISTRESS.WILL ENDORSE TO JOSE MARTIN ANDERSON FOR FELIPA.
[2018-01-20 07:06] LABS: BASOPHILS # (AUTO) 0.1 /CMM (0.0-0.2); EOSINOPHILS % (AUTO) 9.6 % (0.0-6.0); HEMATOCRIT 33 % (33-45); HEMOGLOBIN 10.5 g/dL (11.5-14.8); LYMPHOCYTES # (AUTO) 1.2 /CMM (0.8-4.8); LYMPHOCYTES % (AUTO) 16.3 % (20.0-44.0); MEAN CORPUSCULAR HEMOGLOBIN 31 PG (26.0-33.0); MEAN CORPUSCULAR HGB CONC 32 g/dl (31.0-36.0); MEAN CORPUSCULAR VOLUME 96 fL (82-100); MONOCYTES # (AUTO) 0.9 /CMM (0.1-1.30); MONOCYTES % (AUTO) 11.9 % (2.0-12.0); NEUTROPHILS # (AUTO) 4.7 /CMM (1.8-8.9); NEUTROPHILS % (AUTO) 61.2 % (43.0-81.0); PLATELET COUNT (AUTO) 270 /CMM (150-450); RDW COEFFICIENT OF VARIATION 15.1 (11.5-15.0); WHITE BLOOD COUNT (AUTO) 7.6 K/uL (4.3-11.0)
[2018-01-20 07:41] LABS: CALCIUM, SERUM 8.5 mg/dL (8.5-10.1); CARBON DIOXIDE 34 mmol/L (21-32); CHLORIDE 98 mmol/L (98-107); GLUCOSE 100 mg/dL (74-106); MAGNESIUM 2.1 mg/dL (1.8-2.4); PHOSPHORUS 4.2 mg/dL (2.5-4.9); POTASSIUM 3.7 mmol/L (3.5-5.1); SODIUM SERUM 139 mmol/L (136-145); UREA NITROGEN, BLOOD 29 mg/dL (7-18)
[2018-01-20 08:00] VITALS: BP 110/54
--- NOTE | 2018-01-20 08:00 | NUR ---
MS RN AM NOTES: RECEIVED PT AWAKE LYING IN BED.ON 2LPM VIA NC WITH BRP WITH MINIMAL ASSIST.PT VOIDING WELL.BED ALARM ACTIVATED. PT IS A/OX4. PT HAS IV ON RT HAND #22G HEP LOCK AND RT AC #20G HEP LOCK. CALL LIGHT WITHIN PT'S REACH. BED KEPT IN LOW, LOCKED POSITION, AND SIDE RAILS X 2UP. WILL CONTINUE TO MONITOR PT.
[2018-01-20] MEDS: HYDROXYCHLOROQUINE 200 MG TABLET PO SCH (08:46)
[2018-01-20] MEDS: PANTOPRAZOLE 40 MG VIAL IV SCH (08:47)
[2018-01-20] MEDS: TRAMADOL HCL 50 MG TABLET PO PRN (08:47)
[2018-01-20] MEDS: GABAPENTIN 100 MG CAPSULE PO SCH (08:47)
[2018-01-20] MEDS: predniSONE 1 MG TABLET PO SCH (08:47)
[2018-01-20] MEDS: DULOXETINE HCL 20 MG CAPSULE.DR PO SCH (08:47)
[2018-01-20] MEDS: AMLODIPINE BESYLATE 2.5 MG TABLET PO SCH (08:48)
[2018-01-20] MEDS: METOPROLOL SUCCINATE 25 MG TAB.SR.24H PO SCH (08:48)
[2018-01-20] MEDS: LOSARTAN POTASSIUM 50 MG TABLET PO SCH (08:49)
[2018-01-20] MEDS: ENOXAPARIN SODIUM 30 MG/0.3 ML DISP.SYRIN SQ SCH (09:02)
[2018-01-20] MEDS ORDERED: VANCOMYCIN 0.75 GM in IV D5W 250 ML IV SCH (12:00)
--- NOTE | 2018-01-20 13:59 | NUR ---
SEEN BY DR MADDOX AND ORDERED TO FOLLOW UP WITH HIM IN 2 WEEKS UPON PT'S DISCHARGE.
[2018-01-20 16:00] VITALS: BP 122/57
[2018-01-20] MEDS: GABAPENTIN 300 MG CAPSULE PO SCH (17:39)
--- NOTE | 2018-01-20 18:55 | NUR ---
DISCHARGED PT HOME WITH STABLE V/S ACCOMPANIED BY HER SON,ELIDA.DISCHARGED INSTRUCTIONS,MED RECONCILIATION,RX,MED AND HEALTH TEACHING GIVEN TO THE PT AND FAMILY.INSTRUCTED TO FOLLOW UP WITH DR MENJIVAR(INFECTIOUS DISEASE IN ONE WEEK)AND TO DR MADDOX (PULMO)F/U IN 2 WKS.HANDED THE LEVAQUIN 500 MG PO QD FOR 5 DAYS PRESCRIPTION TO THE SON.
[2018-01-20] MEDS ORDERED: AZITHROMYCIN 250 MG TABLET PO SCH (22:00)
== END 2018-01-20 18:50 | disposition home or self-care (01) | DRG 280 ==
LOC: ER 00:41 → TELE 03:21 → ICU 05:25 → MEDSG2 01-18 10:56
PROVIDERS: ADMIT Registered Nurse; ATTEND Registered Nurse
PROC: 5A09357 Assistance with Respiratory Ventilation, Less than 24 Consecutive Hours, Continuous Positive Airway Pressure (ICD-10-PCS; principal; 2018-01-17)
DX: I11.0 Hypertensive heart disease with heart failure (principal); J96.01 Acute respiratory failure with hypoxia; I21.A1 Myocardial infarction type 2; N17.0 Acute kidney failure with tubular necrosis; J96.02 Acute respiratory failure with hypercapnia; J15.9 Unspecified bacterial pneumonia; I50.23 Acute on chronic systolic (congestive) heart failure; E78.5 Hyperlipidemia, unspecified; M32.9 Systemic lupus erythematosus, unspecified; M79.7 Fibromyalgia; Z87.01 Personal history of pneumonia (recurrent); Z68.26 Body mass index [BMI] 26.0-26.9, adult; I13.0 Hypertensive heart and chronic kidney disease with heart failure and stage 1 through stage 4 chronic kidney disease, or unspecified chronic kidney disease; N18.9 Chronic kidney disease, unspecified; Z79.52 Long term (current) use of systemic steroids; I35.1 Nonrheumatic aortic (valve) insufficiency; I34.0 Nonrheumatic mitral (valve) insufficiency; D72.829 Elevated white blood cell count, unspecified
CPT/HCPCS: 36415; 36600; 71045-TC; 80048-TC; 80053-TC; 80061-TC; 80076-TC; 81000-TC; 82248-TC; 82803-TC; 83605-TC; 83735-TC; 83880; 84100-TC; 84443-TC; 84484-TC; 85025-TC; 85730-TC; 87040-TC; 87081-TC; 87086-TC; 87186-TC; 93307-TC; 94799-TC; A4216; A4606; C9113; J0456; J0696; J1650; J1940; J3370; J7030; J7040; J7050; J7060; J7512; Z7610

== ENCOUNTER 2018-12-30 10:55 | Emergency (ER) | payer MEDICARE, BC ==
[~2018-12-30 10:55] MED LIST: AMLO2.5T4 PO; DICL50TA9 PO; DULO20CA PO; GABA-532 PO; HYDR200T81 PO; LEVO500T75 PO; LOSA100T31 PO; METO-356 PO; OMEP20CA11 PO; PRED1TAB PO; TRAM50TA2 PO
[2018-12-30] MEDS ORDERED: TDAP [DIPH/PERTUSSIS/TET] 0.5 ML VIAL IM ONE ×2 (11:30→11:39)
[2018-12-30] MEDS ORDERED: LIDOCAINE 1%-EPI 1:100,000 20 ML VIAL TP ONE (11:30)
[2018-12-30] MEDS ORDERED: LIDOCAINE 1%-EPI 1:100,000 20 ML VIAL ONE (11:39)
[2018-12-30] MEDS ORDERED: BENZOIN COMPOUND TINCT 60 ML BOTTLE ONE (14:13)
== END 2018-12-30 14:35 | disposition home or self-care (01) ==
DX: S02.2XXA Fracture of nasal bones, initial encounter for closed fracture (principal); S00.12XA Contusion of left eyelid and periocular area, initial encounter; I10 Essential (primary) hypertension; I25.2 Old myocardial infarction; M79.7 Fibromyalgia; Z95.5 Presence of coronary angioplasty implant and graft; Z60.2 Problems related to living alone; Z88.1 Allergy status to other antibiotic agents; W01.198A Fall on same level from slipping, tripping and stumbling with subsequent striking against other object, initial encounter; Y93.H2 Activity, gardening and landscaping; Y92.096 Garden or yard of other non-institutional residence as the place of occurrence of the external cause; Y99.8 Other external cause status
CPT/HCPCS: 70450; 12015; 70486; 90471; 90715; 99284; A6403 ×2; J3490

== ENCOUNTER 2019-01-01 15:12 | Emergency (ER) | payer MEDICARE, BC ==
[~2019-01-01] VITALS: Ht 152.4 cm; Wt 62.6 kg
[~2019-01-01 15:12] MED LIST changes: -METO-356 PO; +METO25TA4 PO; -OMEP20CA11 PO; +OMEP20CA15 PO
[2019-01-01 15:25] VITALS: BP 113/46
--- NOTE | 2019-01-01 15:44 | NUR ---
PATIENT AWAKE ALERT HER SON @ BEDSIDE NOTED SUTURE TOP NOSE NO EDEMA ,NO PAIN APPROXIMATED
--- NOTE | 2019-01-01 16:27 | NUR ---
DC HOME INSTRUCTION GIVEN AGREES TO CALL PMD AND FOLLW UP PATIENT DENIES DISCOMFORT DC HOME TO HER SON
== END 2019-01-01 16:28 | disposition home or self-care (01) ==
LOC: ER 15:12
DX: S02.2XXD Fracture of nasal bones, subsequent encounter for fracture with routine healing (principal); S01.81XD Laceration without foreign body of other part of head, subsequent encounter; I10 Essential (primary) hypertension; I25.2 Old myocardial infarction; M79.7 Fibromyalgia; Z95.818 Presence of other cardiac implants and grafts; Z88.8 Allergy status to other drugs, medicaments and biological substances; Z60.2 Problems related to living alone; Z79.899 Other long term (current) drug therapy; W19.XXXD Unspecified fall, subsequent encounter